=== PATIENT | male | born 1975 | race Caucasian/White ===

== ENCOUNTER 2018-04-05 09:20 | Observation (INO) | payer BC ==
[2018-04-05 09:33] VITALS: BMI 42.7
--- NOTE | 2018-04-05 10:48 | ED PDOC ---
Lower Extremity Pain/Injury Time Seen by Provider: 04/05/18 09:35 Chief Complaint (Nursing): Abnormal Skin Integrity Chief Complaint (Provider): Abnormal Skin Integrity History Per: Patient History/Exam Limitations: no limitations Onset/Duration Of Symptoms: Days (x 2 ) Current Symptoms Are (Timing): Still Present Additional Complaint(s): 42 year old male presents to the ED with a rash on his left leg that began yesterday. He reports having a fever yesterday with T max at 103.7. He visited his PMD who prescribed Augmentin and he has been compliant. Today, rash began to spread further up his leg, prompting ER visit. PMD: Dr. Mary Jo Viveros MD Past Medical History Reviewed: Historical Data, Nursing Documentation, Vital Signs Vital Signs: Last Vital Signs Temp 99.5 F 04/05/18 09:33 Pulse 99 H 04/05/18 09:33 Resp 17 04/05/18 09:33 BP Pulse Ox 96 04/05/18 09:33 - Medical History PMH: No Chronic Diseases - Surgical History Other surgeries: keloidectomy - Family History Family History: States: Unknown Family Hx - Social History Current smoker - smoking cessation education provided: No Ex-Smoker (has not smoked in the last 12 months): Yes Alcohol: None - Home Medications Home Medications: Ambulatory Orders Medication Instructions Recorded Amoxicillin/Clavulanate [Augmentin 1 tab PO Q12 04/05/18 875 MG-125 MG Tab] - Allergies Allergies/Adverse Reactions: Allergies Allergy/AdvReac Type Severity Reaction Status Date / Time No Known Allergies Allergy Verified 04/05/18 10:28 Review of Systems ROS Statement: Except As Marked, All Systems Reviewed And Found Negative Skin: Positive for: Rash (on left leg) Physical Exam - Reviewed Nursing Documentation Reviewed: Yes Vital Signs Reviewed: Yes - Physical Exam Appears: Positive for: Non-toxic, No Acute Distress Head Exam: Positive for: ATRAUMATIC, NORMAL INSPECTION, NORMOCEPHALIC Skin: Positive for: Warm, Dry Eye Exam: Positive for: EOMI, Normal appearance, PERRL Neck: Positive for: Normal Cardiovascular/Chest: Positive for: Regular Rate, Rhythm Respiratory: Positive for: Normal Breath Sounds Gastrointestinal/Abdominal: Positive for: Normal Exam Extremity: Positive for: Normal ROM, Tenderness, Capillary Refill (less than 2 s ), Swelling, Other (cellulitis on anterior lower left leg that is spreading up towards knee). Negative for: Pedal Edema, Calf Tenderness Neurologic/Psych: Positive for: Alert, Oriented (x 3). Negative for: Motor/ Sensory Deficits - Laboratory Results Result Diagrams: 04/06/18 05:40 04/06/18 05:40 - ECG O2 Sat by Pulse Oximetry: 96 (RA) Pulse Ox Interpretation: Normal Medical Decision Making Medical Decision Making: Time: 11:00 Impression: cellulitis Initial Plan: --CMP --CBC --Unasyn 100 ml IVPB --Blood cx Time: 13:03 --Patient will be admitted to Dr. Thompson who covers dr mazariegos. Diagnoses are cellulitis and failure of outpt medications (pt currently on augmentin po) Scribe Attestation: Documented by Natalee Austin, acting as a scribe for Gricelda Reece MD Provider Scribe Attestation: All medical record entries made by the Scribe were at my direction and personally dictated by me. I have reviewed the chart and agree that the record accurately reflects my personal performance of the history, physical exam, medical decision making, and the department course for this patient. I have also personally directed, reviewed, and agree with the discharge instructions and disposition. Disposition - Clinical Impression Clinical Impression: Cellulitis - Patient ED Disposition Is Patient to be Admitted: Yes Counseled Patient/Family Regarding: Studies Performed, Diagnosis, Need For Followup - Disposition Disposition: Routine/Home Disposition Time: 12:30 Condition: STABLE - Pt Status Changed To: Hospital Disposition Of: Observation
[2018-04-05 11:42] LABS: BASO # 0.1 K/uL (0.0-0.2); BASO % 0.9 % (0.0-2.0); EOS % 0.4 % (0.0-4.0); HEMOGLOBIN 14.4 g/dL (12.0-18.0); LYMPH # 1.3 K/uL (1.0-4.3); LYMPH % 19.5 % (20.0-40.0); MEAN CORPUSCULAR HEMOGLOBIN 28.6 pg (27.0-31.0); MEAN CORPUSCULAR HGB CONC 33.7 g/dL (33.0-37.0); MEAN PLATELET VOLUME 10.2 fl (7.2-11.7); MONO # 0.7 K/uL (0.0-0.8); MONO % 10.7 % (0.0-10.0); NEUT # 4.7 K/uL (1.8-7.0); NEUT % 68.5 % (50.0-75.0); NRBC % 0.1 % (0.0-0.0); RBC 5.02 Mil/uL (4.40-5.90); WHITE BLOOD COUNT 6.8 K/uL (4.8-10.8)
[2018-04-05 11:56] LABS: ALB/GLOB RATIO 1.1 (1.0-2.1); ALT/SGPT 72 U/L (21-72); AST/SGOT 34 U/L (17-59); BLOOD UREA NITROGEN 10 mg/dl (9-20); CALCIUM 8.6 mg/dL (8.4-10.2); GFR AFRICAN-AMERICAN > 60; GFR NON-AFRICAN AMERICAN > 60
--- NOTE | 2018-04-05 14:09 | CP.PCM.HP ---
History of Present Illness - History of Present Illness History of Present Illness: CC: right leg pain HPI: 42 y/o man w/ no pmh presents to the ED w/ right leg pain. Patient reports pain started 2 days ago localized to the anterior tibia. The patient reported associated fever measured 103.7F and chills. Patient denies previous incident of leg infection. Patient reports pain radiating to right hip. Patient denies injury, fall, or any other trauma. 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 The patient saw his PMD 2 days ago and was given oral antibiotics but reports no improvement. The patient denies headaches, chest pain, SOB, abdominal pain, nausea, vomiting, diarrhea, or dysuria. PMD: Dr. Viveros PMH: none meds: none allergies: NKDA PSH: keloid removal on left chest Fam: denies SOC: denies smoking, alcohol, and drugs ROS: 12 points assessed and negative unless otherwise reported in HPI Present on Admission - Present on Admission Any Indicators Present on Admission: No History of DVT/PE: No History of Uncontrolled Diabetes: No Urinary Catheter: No Decubitus Ulcer Present: No Review of Systems - Review of Systems All systems: reviewed and no additional remarkable complaints except - Constitutional Constitutional: As Per HPI, Chills, Fever. absent: Headache - EENT Eyes: absent: Change in Vision - Cardiovascular Cardiovascular: absent: Chest Pain, Palpitations - Respiratory Respiratory: absent: Dyspnea - Gastrointestinal Gastrointestinal: absent: Abdominal Pain, Nausea, Vomiting - Genitourinary Genitourinary: absent: Dysuria - Integumentary Integumentary: As Per HPI, Erythema, Rash Past Patient History - Infectious Disease Hx of Infectious Diseases: None - Past Medical History & Family History Past Medical History?: No - Past Social History Alcohol: None - PSYCHIATRIC Hx Emotional Abuse: No Hx Physical Abuse: No Hx Substance Use: No - SURGICAL HISTORY Hx Surgeries: Yes Other/Comment: SKIN LESION/KELOID OF CHEST SURGERY - ANESTHESIA Hx Anesthesia: Yes Hx Anesthesia Reactions: No Hx Malignant Hyperthermia: No Meds Allergies/Adverse Reactions: Allergies Allergy/AdvReac Type Severity Reaction Status Date / Time No Known Allergies Allergy Verified 04/05/18 10:28 Physical Exam - Constitutional Appears: Non-toxic, No Acute Distress - Head Exam Head Exam: ATRAUMATIC, NORMAL INSPECTION, NORMOCEPHALIC - Eye Exam Eye Exam: Normal appearance - ENT Exam ENT Exam: Mucous Membranes Moist - Neck Exam Neck exam: Positive for: Full Rom. Negative for: Tenderness - Respiratory Exam Respiratory Exam: Clear to Auscultation Bilateral. absent: Accessory Muscle Use , Decreased Breath Sounds, Rales, Rhonchi, Wheezes, Respiratory Distress - Cardiovascular Exam Cardiovascular Exam: REGULAR RHYTHM, RRR. absent: Tachycardia, Diastolic murmur , Systolic Murmur - GI/Abdominal Exam GI & Abdominal Exam: Normal Bowel Sounds, Soft. absent: Distended, Tenderness - Extremities Exam Extremities exam: Positive for: tenderness. Negative for: calf tenderness Additional comments: right leg cellulitis on anterior tibia w/ erythema, and tenderness, no discharge - Expanded Lower Extremities Exam Right Hip exam: tenderness Lower Leg Exam: erythema, tenderness - Neurological Exam Neurological exam: Alert, Oriented x3 - Skin Skin Exam: Dry, Normal Color, Warm Results - Vital Signs Recent Vital Signs: Last Vital Signs Temp 99.5 F 04/05/18 09:33 Pulse 99 H 04/05/18 09:33 Resp 17 04/05/18 09:33 BP Pulse Ox 96 04/05/18 13:08 - Labs Result Diagrams: 04/05/18 11:18 04/05/18 11:18 Labs: Laboratory Results - last 24 hr 04/05/18 04/05/18 11:18 11:18 WBC 6.8 RBC 5.02 Hgb 14.4 Hct 42.7 MCV 85.0 MCH 28.6 MCHC 33.7 RDW 14.0 Plt Count 105 L MPV 10.2 Neut % (Auto) 68.5 Lymph % (Auto) 19.5 L Gates % (Auto) 10.7 H Eos % (Auto) 0.4 Baso % (Auto) 0.9 Neut # (Auto) 4.7 Lymph # (Auto) 1.3 Gates # (Auto) 0.7 Eos # (Auto) 0.0 Baso # (Auto) 0.1 Sodium 139 Potassium 4.1 Chloride 100 Carbon Dioxide 29 Anion Gap 14 BUN 10 Creatinine 0.8 Est GFR ( Amer) > 60 Est GFR (Non-Af Amer) > 60 Random Glucose 99 Calcium 8.6 Total Bilirubin 1.2 AST 34 ALT 72 Alkaline Phosphatase 78 Total Protein 7.7 Albumin 4.0 Globulin 3.7 Albumin/Globulin Ratio 1.1 Assessment & Plan (1) Cellulitis Status: Acute - Assessment and Plan (Free Text) Plan: afebrile, non-tachycardic, normotensive given unasyn 3 gm in ED CBC and CMP are WNL start cefazolin 1 gm IV Q8h start pro-biotic f/u CBC and CMP in AM f/u blood culture monitor for acute changes
[2018-04-05] MEDS: Lactobacillus Acidophilus 500 MU Cap PO SCH (16:47)
[2018-04-05] MEDS: ceFAZolin 1 GM in Sodium Chloride 0.9% 100 ML IVPB SCH (16:47)
[2018-04-06] MEDS: ceFAZolin 1 GM in Sodium Chloride 0.9% 100 ML IVPB SCH ×3 (00:24→16:47)
[2018-04-06 06:05] LABS: BASO % 0.7 % (0.0-2.0); EOS # 0.2 K/uL (0.0-0.7); EOS % 4.6 % (0.0-4.0); HEMOGLOBIN 14.5 g/dL (12.0-18.0); LYMPH % 37.3 % (20.0-40.0); MEAN CELL VOLUME 85.9 fl (80.0-94.0); MEAN CORPUSCULAR HEMOGLOBIN 29.1 pg (27.0-31.0); MEAN CORPUSCULAR HGB CONC 33.9 g/dL (33.0-37.0); MEAN PLATELET VOLUME 9.1 fl (7.2-11.7); MONO # 0.8 K/uL (0.0-0.8); MONO % 15.2 % (0.0-10.0); NEUT # 2.3 K/uL (1.8-7.0); NEUT % 42.2 % (50.0-75.0); RBC 4.99 Mil/uL (4.40-5.90); WHITE BLOOD COUNT 5.3 K/uL (4.8-10.8)
[2018-04-06 06:54] LABS: ALB/GLOB RATIO 1.1 (1.0-2.1); ALBUMIN 3.8 g/dL (3.5-5.0); ALT/SGPT 64 U/L (21-72); AST/SGOT 31 U/L (17-59); BLOOD UREA NITROGEN 13 mg/dl (9-20); CALCIUM 8.6 mg/dL (8.4-10.2); GFR AFRICAN-AMERICAN > 60; GFR NON-AFRICAN AMERICAN > 60
--- NOTE | 2018-04-06 08:49 | CP.PCM.PN ---
Subjective - Date & Time of Evaluation Date of Evaluation: 04/06/18 Time of Evaluation: 07:45 - Subjective Subjective: Patient seen and examined this morning at bedside w/ Dr. Thompson. There are no acute events overnight, NAD. The patient reports less pain with right leg and pain relieved w/ medication. Patient denies headaches, chest pain, SOB, abdominal pain, nausea, vomiting, diarrhea, dysuria, or fever. Objective - Vital Signs/Intake and Output Vital Signs (last 24 hours): Temp Pulse Resp BP Pulse Ox 98.2 F 64 20 127/73 94 L 04/06/18 07:54 04/06/18 07:54 04/06/18 07:54 04/06/18 07:54 04/06/18 07:54 - Medications Medications: Current Medications Acetaminophen (Tylenol 325mg Tab) 650 mg PO Q6 PRN PRN Reason: Pain, Mild (1-3) Enoxaparin Sodium (Lovenox) 40 mg SC DAILY [facility] PRN Reason: Protocol Cefazolin Sodium 1 gm/ Sodium (Chloride) 100 mls @ 100 mls/hr IVPB Q8 NONI PRN Reason: Protocol Last Admin: 04/06/18 00:24 Dose: 100 mls/hr Ibuprofen (Motrin Tab) 400 mg PO Q6H PRN PRN Reason: Pain, moderate (4-7) Lactobacillus Acidophilus (Bacid Acidophilus) 1 cap PO BID [facility] Last Admin: 04/05/18 16:47 Dose: 1 cap - Labs Labs: 04/06/18 05:40 04/06/18 05:40 - Constitutional Appears: Non-toxic, No Acute Distress - Head Exam Head Exam: ATRAUMATIC, NORMAL INSPECTION, NORMOCEPHALIC - Eye Exam Eye Exam: Normal appearance - ENT Exam ENT Exam: Mucous Membranes Moist - Neck Exam Neck Exam: Full ROM. absent: Tenderness - Respiratory Exam Respiratory Exam: Clear to Ausculation Bilateral. absent: Accessory Muscle Use , Decreased Breath Sounds, Rales, Rhonchi, Wheezes, Respiratory Distress - Cardiovascular Exam Cardiovascular Exam: REGULAR RHYTHM, RRR. absent: Tachycardia, Murmur - GI/Abdominal Exam GI & Abdominal Exam: Soft, Normal Bowel Sounds. absent: Distended, Tenderness - Extremities Exam Extremities Exam: absent: Calf Tenderness Additional comments: right leg cellulitis on anterior tibia w/ erythema, and tenderness, no discharge - Neurological Exam Neurological Exam: Alert, Awake, Oriented x3 - Skin Skin Exam: Dry, Normal Color, Warm Assessment and Plan (1) Cellulitis Status: Acute - Assessment and Plan (Free Text) Plan: c/w present management afebrile, non-tachycardic, normotensive given unasyn 3 gm in ED CBC and CMP are WNL blood culture: no growth c/w cefazolin 1 gm IV Q8h day 2 c/w pro-biotic prophylactic measures: DVT lovenox 40 mg SC daily monitor for acute changes
[2018-04-06] MEDS: Enoxaparin 40 mg Syringe SC SCH (10:44)
[2018-04-06] MEDS: Lactobacillus Acidophilus 500 MU Cap PO SCH ×2 (10:45→16:45)
[2018-04-07 00:18] VITALS: RESP 19
[2018-04-07] MEDS: ceFAZolin 1 GM in Sodium Chloride 0.9% 100 ML IVPB SCH ×2 (00:56→08:30)
[2018-04-07 07:47] VITALS: BP 120/72; PULSE 75; TEMP 97.6; O2SAT 97
[2018-04-07] MEDS: Lactobacillus Acidophilus 500 MU Cap PO SCH (08:30)
[2018-04-07] MEDS: Enoxaparin 40 mg Syringe SC SCH (08:30)
[2018-04-07 09:40] LABS: BASO % 1.2 % (0.0-2.0); EOS # 0.3 K/uL (0.0-0.7); EOS % 8.2 % (0.0-4.0); HEMOGLOBIN 14.2 g/dL (12.0-18.0); LYMPH # 1.6 K/uL (1.0-4.3); LYMPH % 41.3 % (20.0-40.0); MEAN CELL VOLUME 86.1 fl (80.0-94.0); MEAN CORPUSCULAR HEMOGLOBIN 29.1 pg (27.0-31.0); MEAN CORPUSCULAR HGB CONC 33.8 g/dL (33.0-37.0); MEAN PLATELET VOLUME 9.9 fl (7.2-11.7); MONO # 0.3 K/uL (0.0-0.8); MONO % 8.3 % (0.0-10.0); NEUT # 1.6 K/uL (1.8-7.0); NRBC % 0.1 % (0.0-0.0); RBC 4.88 Mil/uL (4.40-5.90); RED CELL DISTRIBUTION WIDTH 14.1 % (11.5-14.5); WHITE BLOOD COUNT 3.9 K/uL (4.8-10.8)
[2018-04-07 09:49] LABS: ALB/GLOB RATIO 1.1 (1.0-2.1); ALBUMIN 3.8 g/dL (3.5-5.0); ALT/SGPT 66 U/L (21-72); AST/SGOT 35 U/L (17-59); BLOOD UREA NITROGEN 12 mg/dl (9-20); CALCIUM 8.8 mg/dL (8.4-10.2); GFR AFRICAN-AMERICAN > 60; GFR NON-AFRICAN AMERICAN > 60
--- NOTE | 2018-04-07 10:33 | CP.PCM.DIS ---
Provider - Provider Date of Admission: 04/05/18 13:04 Attending physician: Shar Thompson MD Time Spent in preparation of Discharge (in minutes): 15 Diagnosis - Discharge Diagnosis (1) Cellulitis Status: Acute Hospital Course - Lab Results Lab Results: Micro Results 04/05/18 11:45 Blood Blood Culture - Preliminary NO GROWTH AFTER 24 HOURS 04/05/18 11:45 Blood Blood Culture - Preliminary NO GROWTH AFTER 24 HOURS Most Recent Lab Values WBC 3.9 K/uL (4.8-10.8) L 04/07/18 09:20 RBC 4.88 Mil/uL (4.40-5.90) 04/07/18 09:20 Hgb 14.2 g/dL (12.0-18.0) 04/07/18 09:20 Hct 42.0 % (35.0-51.0) 04/07/18 09:20 MCV 86.1 fl (80.0-94.0) 04/07/18 09:20 MCH 29.1 pg (27.0-31.0) 04/07/18 09:20 MCHC 33.8 g/dL (33.0-37.0) 04/07/18 09:20 RDW 14.1 % (11.5-14.5) 04/07/18 09:20 Plt Count 120 K/uL (130-400) L D 04/07/18 09:20 MPV 9.9 fl (7.2-11.7) 04/07/18 09:20 Neut % (Auto) 41.0 % (50.0-75.0) L 04/07/18 09:20 Lymph % (Auto) 41.3 % (20.0-40.0) H 04/07/18 09:20 [place] % (Auto) 8.3 % (0.0-10.0) 04/07/18 09:20 Eos % (Auto) 8.2 % (0.0-4.0) H 04/07/18 09:20 Baso % (Auto) 1.2 % (0.0-2.0) 04/07/18 09:20 Neut # (Auto) 1.6 K/uL (1.8-7.0) L 04/07/18 09:20 Lymph # (Auto) 1.6 K/uL (1.0-4.3) 04/07/18 09:20 [place] # (Auto) 0.3 K/uL (0.0-0.8) 04/07/18 09:20 Eos # (Auto) 0.3 K/uL (0.0-0.7) 04/07/18 09:20 Baso # (Auto) 0.0 K/uL (0.0-0.2) 04/07/18 09:20 Sodium 139 mmol/l (132-148) 04/07/18 09:20 Potassium 3.8 MMOL/L (3.6-5.0) 04/07/18 09:20 Chloride 102 mmol/L (98-107) 04/07/18 09:20 Carbon Dioxide 29 mmol/L (22-30) 04/07/18 09:20 Anion Gap 12 (10-20) 04/07/18 09:20 BUN 12 mg/dl (9-20) 04/07/18 09:20 Creatinine 0.7 mg/dl (0.8-1.5) L 04/07/18 09:20 Est GFR ( Amer) > 60 04/07/18 09:20 Est GFR (Non-Af Amer) > 60 04/07/18 09:20 Random Glucose 106 mg/dL (75-110) 04/07/18 09:20 Calcium 8.8 mg/dL (8.4-10.2) 04/07/18 09:20 Total Bilirubin 1.2 mg/dl (0.2-1.3) 04/07/18 09:20 AST 35 U/L (17-59) 04/07/18 09:20 ALT 66 U/L (21-72) 04/07/18 09:20 Alkaline Phosphatase 73 U/L (38-126) 04/07/18 09:20 Total Protein 7.3 G/DL (6.3-8.2) 04/07/18 09:20 Albumin 3.8 g/dL (3.5-5.0) 04/07/18 09:20 Globulin 3.5 gm/dL (2.2-3.9) 04/07/18 09:20 Albumin/Globulin Ratio 1.1 (1.0-2.1) 04/07/18 09:20 - Hospital Course Hospital Course: 42 y/o man w/ no pmh presents to the ED w/ right leg pain. The patient is admitted for cellulitis. The patient was started on IV cefazolin and responded to the therapy. The patient denies leg pain and is feeling better. The patient has been seen, examined, and deemed medically fit for discharge home. The patient is discharged w/ augmentin PO for 1 week. The patient is to follow up w/ PMD in 2-3 days. Discharge Exam - Head Exam Head Exam: ATRAUMATIC, NORMAL INSPECTION, NORMOCEPHALIC - Eye Exam Eye Exam: Normal appearance - ENT Exam ENT Exam: Mucous Membranes Moist - Neck Exam Neck exam: Full Rom - Respiratory Exam Respiratory Exam: Clear to PA & Lateral. absent: Accessory Muscle Use, Decreased Breath Sounds, Rales, Rhonchi, Wheezes, Respiratory Distress - Cardiovascular Exam Cardiovascular Exam: REGULAR RHYTHM, RRR. absent: Tachycardia, Systolic Murmur - GI/Abdominal Exam GI & Abdominal Exam: Normal Bowel Sounds, Soft. absent: Distended, Tenderness - Extremities Exam Additional comments: right lower extremity decreased erythema, non-tender - Neurological Exam Neurological exam: Alert, Normal Gait, Oriented x3 - Skin Skin Exam: Dry, Intact, Warm Discharge Plan - Discharge Medications Prescriptions: Amoxicillin/Clavulanate [Augmentin 875 MG-125 MG Tab] 1 tab PO Q12 #14 tab - Follow Up Plan Condition: STABLE Disposition: HOME/ ROUTINE Instructions: Cellulitis (Skin Infection), Adult (DC) Referrals: Emerson Viveros MD [Family Provider] -
== END 2018-04-07 11:30 | disposition home or self-care (01) ==
LOC: H.ER 09:20 → H.ERHOLD 13:04 → H.MEDSURG1 14:46
PROVIDERS: ADMIT Internal Medicine; ATTEND Internal Medicine
DX: L03.115 Cellulitis of right lower limb (principal); Z87.891 Personal history of nicotine dependence
CPT/HCPCS: 36415; 80053; 85025; 87040; 96365; 99285; G0378; J0295; J0690; J1650